=== PATIENT | male | born 2005 | race Two or more races ===

== ENCOUNTER 2025-09-15 01:24 | Emergency (ER) | payer SELFPAY | END 2025-09-15 03:39 | disposition home or self-care (01) | LOC: CSHERS 01:24 | DX: S09.90XA Unspecified injury of head, initial encounter (principal); S13.9XXA Sprain of joints and ligaments of unspecified parts of neck, initial encounter; W22.8XXA Striking against or struck by other objects, initial encounter; Y92.091 Bathroom in other non-institutional residence as the place of occurrence of the external cause | CPT/HCPCS: 70450 ==